=== PATIENT | male | born 1995 | race Caucasian/White ===

== ENCOUNTER 2023-07-02 18:12 | Emergency (ER) | payer OTHER, SELFPAY ==
[2023-07-02 18:18] VITALS: BP 133/75; PULSE 91; RESP 20; TEMP 36.8; O2SAT 99
[2023-07-02 19:20] LABS: Appearance Urine Clear (Clear); Bacteria Urine None Seen /hpf; Bilirubin Urine Negative (Negative); Blood Urine Negative (Negative); Color Urine Yellow (Yellow); Glucose Urine UA Negative (Negative); Ketones Urine Negative (Negative); Leukocyte Esterase Ur Negative LEU/UL (Negative); Nitrate Urine Negative (Negative); Non Pathogenic Casts 0-2; Protein Urine Trace mg/dL (Negative); RBC Urine 0-2 /hpf (0-2); Specific Grav Ur 1.024 (1.001-1.035); Squamous Epithelial Cell Urine None seen /hpf (Few); Urobilinogen Urine 0.2 mg/dL (<2.0); WBC Urine 0-5 /hpf; pH Urine 8.5 (5.0-9.0)
[2023-07-02 19:23] LABS: Add Urine Microscopic? YES
[2023-07-02 20:44] LABS: Chlamydia trachomatis NOT DETECTED (NOT DETECTE); Neisseria gonorrhoeae PCR NOT DETECTED (NOT DETECTE)
--- NOTE | 2023-07-02 21:41 | PC.NURSE ---
pt states he doesn't want to wait any longer, pt informed that he can get his results from medical records.
[2023-07-02 22:30] LABS: Trichomonas Vag PCR NOT DETECTED (NOT DETECTE)
== END 2023-07-02 22:06 | disposition left against medical advice (07) ==
PROVIDERS: Emergency Provider Physician Assistant
DX: R36.9 Urethral discharge, unspecified (principal)
CPT/HCPCS: 81001; 87491; 87591; 87661; 99199